=== PATIENT | male | born 1960 | race Caucasian/White ===

== ENCOUNTER 2016-04-26 07:25 | Day surgery (SDC) | payer BC ==
[~2016-04-26 07:25] MED LIST: LIDOCAINE W/ SODIUM BICARB 0.5 ML SYR ONE; Lactated Ringers 1,000 ML PRIMARY IV ONE; MIDAZOLAM 5 MG/1 ML ONE; fentaNYL Inj 100 MCG/2 ML VIAL ONE
--- NOTE | 2016-04-26 08:23 | GEN.OPNOTE ---
Colonoscopy Procedure Note Surgery Date: 04/26/16 Preoperative Diagnosis: Screening for colon cancer Postoperative Diagnosis: Diverticulosis. Screening for colon cancer Procedure: Colonoscopy Surgeon: Joe Keen MD Anesthesia Provider: Codey Rao CRNA Anesthesia Type: MAC Indications: Screening for colon cancer Findings: Prep : Excellent Cecum : [employer] video colonoscopy scope was advanced all way to the cecum. Appendiceal orifice and ileocecal valve seen. She had no apparent cecum Ascending : Ascending colon was free from disease Transverse : Transverse colon was free from disease Sigmoid : Descending and sigmoid colon were free from disease except for occasional diverticulum in the sigmoid colon Rectum : Rectum free from disease no abnormal pathology seen Digital Rectal Exam : A lubricated flexible colonoscope was inserted and passed to the blind end of the cecum.
[2016-04-26 08:33] VITALS: RESP 14; TEMP 96.9
--- NOTE | 2016-04-30 09:16 | MINORPROC ---
Outpatient History & Physical Chief Complaint: Need for screening colonoscopy Present Illness: Need for screening colonoscopy History: General: WNL, HEENT: WNL, Respiratory: WNL, Cardiovascular: WNL, Gastrointestinal: WNL Physical Exam: General: WNL, Head/Neck: WNL, Chest/Lungs: WNL, Heart: WNL Home Medications: Home Medications Medication Instructions Recorded Confirmed Type Albuterol Sulfate [Proair Hfa] 2 puff INH Q4-6H #1 inh 03/06/16 04/26/16 Clinic Loratadine [Claritin] 1 tab PO DAILY #30 tab 03/06/16 04/26/16 Clinic Mometasone/Formoterol [Dulera 200 1 - 2 puff INH BID #1 packet 03/06/16 Clinic Mcg/5 Mcg Inhaler] Rosuvastatin Calcium [Crestor] 1 tab PO QD #30 tab 03/06/16 04/26/16 Clinic Sertraline HCl 1 tab PO DAILY #30 tab 03/06/16 04/26/16 Clinic Allergies/Adverse Reactions: Allergies Allergy/AdvReac Type Severity Reaction Status Date / Time Penicillins Allergy Unknown NOT Verified 04/26/16 07:40 APPLICABLE Impression / Plan: Colon cancer surveillance The patient will need a colonoscopy. The risks of the procedure and benefits were discussed with the patient. I have discussed the pathophysiology between polyps and colon cancer. I also discussed the reasons why we use a colonoscopy for screening method versus the other screening methods are available. The patient like to proceed with a colonoscopy, The procedure reset up at first available date. Transfusion: Transfusion Not Anticipated Anesthesia Plans: Sedation ASA Class: Class 1 : Normal, Healthy Patient
== END 2016-04-26 09:50 | disposition home or self-care (01) ==
LOC: SDSC 07:25
PROVIDERS: ATTEND Surgery
DX: Z12.11 Encounter for screening for malignant neoplasm of colon (principal); K57.90 Diverticulosis of intestine, part unspecified, without perforation or abscess without bleeding
CPT/HCPCS: 45378; J2704; J3010; J2250; J7120